=== PATIENT | female | born 1950 | race Caucasian/White ===

== ENCOUNTER 2018-05-12 16:14 | Observation (INO) | payer OTHER, SELFPAY ==
[2018-05-12 18:39] VITALS: BMI 29.3
[2018-05-12 19:16] LABS: Urine Appearance CLEAR; Urine Bilirubin NEGATIVE (NEG); Urine Blood NEGATIVE (NEG); Urine Color YELLOW; Urine Glucose 3+ (NEG); Urine Protein NEGATIVE (NEG); Urine Specific Gravity >=1.030 (1.005-1.030); Urine Urobilinogen 0.2 mg/dL (0.2-1.0)
[2018-05-12 19:22] LABS: Urine Microscopic Reflex ORDER UMIC
[2018-05-12 20:13] LABS: Urine Bacteria <20 /HPF (<20); Urine RBC NONE SEEN /HPF (NONE SEEN)
[2018-05-12 20:14] LABS: Urine Culture Reflex Order REFLEXED
--- NOTE | 2018-05-12 20:24 | P.HP ---
Certification for Inpatient Patient admitted to: Observation With expected LOS: <2 Midnights Practitioner: I am a practitioner with admitting privileges, knowledge of patient current condition, hospital course, and medical plan of care. Services: Services provided to patient in accordance with Admission requirements found in Title 42 Section 412.3 of the Code of Federal Regulations Patient History Date of Service: 05/12/18 Reason for admission: Right lower leg cellulitis after a cat bite History of Present Illness: This is a 60-year-old female with history of diabetes hypertension hyperlipidemia who presented with right lower extremity calf swelling warm and cat bite wounds. Per patient, she was bitten by her cat on Thursday after she stepped on it. She then went to the ER 2 days ago and states was given 1 injection there and then discharged home with oral Augmentin. She has taken 1 day of Augmentin and states that her symptoms did not get any better and was still noting purulent drainage and was having pain with walking. [facility] and was sent to the hospital for failing outpatient treatment of right lower extremity cellulitis. Allergies No Known Allergies Allergy (Verified 05/12/18 18:40) Home Medications: Allopurinol [Zyloprim] 100 mg PO DAILY 05/12/18 Amlodipine [Norvasc] 2.5 mg PO DAILY 05/12/18 Canagliflozin [Invokana] 100 mg PO DAILY 05/12/18 Metformin HCl 500 mg PO SEECOM 05/12/18 Oxybutynin Chloride 5 mg PO TID 05/12/18 Potassium Citrate [Urocit-K] 10 meq PO TID 05/12/18 Ramipril [Altace] 10 mg PO DAILY 05/12/18 Rosuvastatin Calcium 10 mg PO DAILY 05/12/18 Saxagliptin HCl [Onglyza] 5 mg PO DAILY 05/12/18 hydroCHLOROthiazide [Hydrodiuril] 25 mg PO DAILY 05/12/18 - Past Medical/Surgical History Has patient received pneumonia vaccine in the past: No Diabetic: Yes -: hypercholesterolemia -: hypertension -: hysterectomy 2008 -: right arm surgery 2005 -: laser surgery to get rid of kidney stones 2011 - Social History Smoking Status: Never smoker Alcohol use: No CD- Drugs: No Caffeine use: Yes Place of Residence: Home Review of Systems General: Unremarkable Eyes: Unremarkable ENT: Unremarkable Respiratory: Unremarkable Cardiovascular: Unremarkable Gastrointestinal: Unremarkable Genitourinary: Unremarkable Musculoskeletal: Unremarkable Integumentary: As per HPI Neurological: Unremarkable Lymphatics: Unremarkable Physical Examination - Vital Signs Temperature: 97.6 F Blood Pressure: 133/62 Pulse: 85 Respirations: 18 Pulse Ox (%): 97 - Physical Exam General: Alert, In no apparent distress, Oriented x3 HEENT: Normocephalic Neck: Supple, JVD not distended Respiratory: Clear to auscultation bilaterally, Normal air movement Cardiovascular: No edema, Normal pulses, Regular rate/rhythm, Normal S1 S2 Capillary refill: <2 Seconds Gastrointestinal: Normal bowel sounds, Soft and benign Musculoskeletal: No clubbing Integumentary: Skin breakdown (Noted cellulitis on right lower extremity, going up to 1/3 of the distal calf. Also noted multiple puncture wounds from the cat bite with moderate amount of purulent drainage.), Skin lesion, Tenderness/ swelling, Erythema, Warmth Assessment and Plan - Problems (Diagnosis) (1) Cellulitis of right lower leg Current Visit: Yes Status: Acute Plan: Patient admitted for cellulitis of right lower extremity. Failing outpatient treatment with Augmentin. She did receive a dose of clindamycin and Altace this afternoon. Will continue clindamycin IV here. Continue pain control. (2) Diabetes mellitus type 2 in obese Current Visit: Yes Status: Chronic Plan: Accu-Cheks and sliding scale insulin. Will monitor (3) Hypertension Current Visit: Yes Status: Chronic Plan: Restart home medications. Qualifiers: Hypertension type: unspecified Qualified Code(s): I10 - Essential (primary ) hypertension (4) Hyperlipidemia Current Visit: Yes Status: Acute Plan: Restart home medications. Discharge Plan: Home Plan to discharge in: 24 Hours - Advance Directives Does patient have a Living Will: Yes Does patient have a Durable POA for Healthcare: Yes
[2018-05-12] MEDS ORDERED: ACETAMINOPHEN 500 MG TAB PO PRN (20:33)
[2018-05-12] MEDS: INSULIN -REGULAR HUMAN 50 UNIT/0.5 ML ML SQ SCH (21:00)
[2018-05-12] MEDS: OXYBUTYNIN CHLORIDE 5 MG TAB PO SCH (21:42)
[2018-05-13] MEDS: MORPHINE 4 MG/ML SYR IV PRN ×3 (00:16→08:40)
[2018-05-13] MEDS ORDERED: CLINDAMYCIN IV 150 MG/ML (6 mL) VIAL ONE (00:44)
[2018-05-13] MEDS ORDERED: NA CHLORIDE 0.9% 50 ML ONE (00:44)
[2018-05-13] MEDS ORDERED: NA CHLORIDE 0.9% 250 ML ONE (00:49)
[2018-05-13] MEDS: CLINDAMYCIN INJ 600 MG in NA CHLORIDE 0.9% 50 ML IV SCH ×3 (00:54→18:20)
[2018-05-13 06:04] LABS: Absolute Lymphocytes (CBC) 1.5 K/uL (0.7-4.9); Absolute Monocytes 0.8 K/uL (0.1-1.3); Absolute Neutrophil 5.9 K/uL (1.8-8.0); Basophils % 0.5 % (0-1.3); Eosinophils % 4.4 % (0-4.4); Hematocrit 33.9 % (36.0-45.0); Lymphocytes % 17.5 % (15.3-44.8); MCH 27.1 pg (27.0-35.0); MCV 81.7 fL (80-100); MPV 8.9 fL (7.6-11.3); Monocytes % 9.7 % (3.3-12.3); RBC Red Blood Cell Count 4.15 M/uL (3.86-4.86)
[2018-05-13 06:23] LABS: Bilirubin Total 0.5 mg/dL (0.2-1.0); Potassium 4.9 mmol/L (3.5-5.1)
[2018-05-13] MEDS: INSULIN -REGULAR HUMAN 50 UNIT/0.5 ML ML SQ SCH ×3 (07:30→16:30)
[2018-05-13] MEDS: OXYBUTYNIN CHLORIDE 5 MG TAB PO SCH ×2 (08:42→13:45)
[2018-05-13] MEDS: POTASSIUM CITRATE 10 MEQ PO SCH ×2 (08:54→13:45)
[2018-05-13] MEDS ORDERED: RAMIPRIL 5 MG CAP PO SCH (09:00)
[2018-05-13] MEDS ORDERED: ALLOPURINOL 100 MG TAB PO SCH (09:00)
[2018-05-13] MEDS ORDERED: AMLODIPINE 2.5 MG TAB PO SCH (09:00)
[2018-05-13] MEDS ORDERED: hydroCHLOROthiazide 25 MG TAB PO SCH (09:00)
[2018-05-13] MEDS ORDERED: ENOXAPARIN 40 MG/0.4 ML SQ SCH (09:00)
[2018-05-13] MEDS ORDERED: ROSUVASTATIN 10 MG TAB PO SCH (09:00)
[2018-05-13 13:14] VITALS: O2SAT 93
[2018-05-13 17:26] VITALS: BP 93/49; TEMP 98.1
== END 2018-05-13 20:27 | disposition home or self-care (01) ==
LOC: 2ND 17:50
PROVIDERS: ADMIT Family Medicine; ATTEND Family Medicine
DX: L03.115 Cellulitis of right lower limb (principal); E11.9 Type 2 diabetes mellitus without complications; I10 Essential (primary) hypertension; E78.5 Hyperlipidemia, unspecified
CPT/HCPCS: 36415; 80053; 81003; 81015; 82962; 85025; 87070; 87086; 87088; 87205; G0378; J1650